=== PATIENT | female | born 1985 | race Caucasian/White ===

== ENCOUNTER 2017-08-02 14:22 | Emergency (ER) | payer SELFPAY ==
[~2017-08-02] VITALS: Ht 165.1 cm; Wt 65.0 kg
[~2017-08-02 14:22] MED LIST: BACT800T5 PO; CEPH-460 PO; HYDR-3533 PO; ZOFR4TAB3 SL
[2017-08-02 14:24] VITALS: BP 115/71; PULSE 70; RESP 20; TEMP 98.4; O2SAT 99
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
[2017-08-02] MEDS ORDERED: CEPH-460 PO (15:25)
[2017-08-02] MEDS ORDERED: BACT800T5 PO (15:25)
== END 2017-08-02 16:23 | disposition home or self-care (01) ==
LOC: EDTENT 14:22
DX: L73.2 Hidradenitis suppurativa (principal); K21.9 Gastro-esophageal reflux disease without esophagitis; Z72.0 Tobacco use
CPT/HCPCS: 10061; 86403; 87070

== ENCOUNTER 2017-09-26 19:08 | Emergency (ER) | payer SELFPAY ==
[~2017-09-26 19:08] MED LIST changes: -HYDR-3533 PO; -ZOFR4TAB3 SL
[2017-09-26 19:11] VITALS: BP 124/87; PULSE 102; RESP 15; TEMP 98.8; O2SAT 100
--- NOTE | 2017-09-26 20:23 | PD ---
HPI Chief Complaint: Skin Problem Time Seen by Provider: 20:12 Travel History International Travel<30 days: No Contact w/Intl Traveler<30days: No Traveled to known affect area: No History of Present Illness HPI Patient comes in complaining of a swollen lump behind her left ear has been there for a while however the past 3 days it has become larger and become painful. Patient describes pain is throbbing like in nature without radiation. Pain is worse with palpation. Patient denies doing anything for this. Denies anything making it better. Patient states that she has similar bumps behind her right ear as well. Denies , IV drug use, or fevers. PFSH Past Medical History AAA: No ADD: No ADHD: No Alzheimer's Disease: No Anemia: No Arthritis: No Atrial Fibrillation: No Autoimmune Disease: No Blood Disorders: No Bipolar Disorder: No Anxiety: No Depression: No Heart Rhythm Problems: No Cancer: No Cardiac Catheterization: No Cardiomyopathy: No Cardiovascular Problems: No Cerebral Palsy: No High Cholesterol: No Chemotherapy: No Chest Pain: Yes Congestive Heart Failure: No Cirrhosis: No COPD: No Cerebrovascular Accident: No Coronary Artery Disease: No Cystic Fibrosis: No Developmental Delay: No Dialysis: No Diminished Hearing: No Diverticulitis: No Deep Vein Thrombosis: No Endocrine: No Fibromyalgia: No Gastrointestinal Disorders: No Genetic Disorder: No GERD: Yes Glaucoma: No Gout: No Genitourinary: No Headaches: No Hepatitis: No Heparin Induced Thrombocytopen: No Hypertension: No Implanted Vascular Access Dvce: No Insomnia: No Kidney Stones: No Musculoskeletal: No Neurologic: No Parkinson's Disease: No Psychiatric: No Reproductive: No Respiratory: No Resp. Syncytial Virus (RSV): No Integumentary: No Migraines: No Myocardial Infarction: No Pancreatitis: No Pneumonia: No Radiation Therapy: No Seizures: No Shingles: No Sickle Cell Disease: No Sleep Apnea: No Thyroid Disease: No Triglycerides - High: No Ulcer: No ?: Not LMP: 09/02/17 : 4 Para: 4 Miscarriage: 1 : 3 Ovarian Cysts: Yes Dilation and Curettage (D&C): Yes Tubal Ligation: No Past Surgical History Abdominal Aneurysm Repair: No Abdominal Surgery: Yes AICD: No Appendectomy: No Arteriovenous Shunt: No Cardiac Surgery: No Section: Yes Cholecystectomy: No Coronary Artery Bypass Graft: No Coronary Stent: No Endocrine Surgery: No Eye Surgery: No Genitourinary Surgery: Yes Gynecologic Surgery: Yes Hysterectomy: No Insulin Pump: No Joint Replacement: No Mastectomy: No Neurologic Surgery: No Oral Surgery: No Pacemaker: No Prostatectomy: No Thoracic Surgery: No Tonsillectomy: No Tympanostomy Tube: No Valve Replacement: No Other Surgery: No Family History Family Hypercholesterolemia: Yes Social History Alcohol Use: Yes Tobacco Use: Yes Substance Use: No Allergies-Medications (Allergen,Severity, Reaction): Coded Allergies: No Known Allergies (Unverified , 08/02/17) Reported Meds & Prescriptions Reported Meds & Active Scripts Active Keflex (Cephalexin) 500 Mg Cap 500 Mg PO Q8H Bactrim DS (Sulfamethoxazole-Trimethoprim) 800-160 Mg Tab 1 Tab PO BID Review of Systems Except as stated in HPI: all other systems reviewed are Neg Physical Exam Narrative GENERAL: Well-developed, well nourished, in no acute distress, and non-ill appearing. SKIN: Focused skin assessment warm and dry. Small infected sebaceous cyst noted left posterior auricle. Patient is similar tiny sebaceous cyst behind the right auricle. There is no drainage, but is tender to palpation. There is no crepitus. HEAD: Atraumatic. Normocephalic. EYES: Pupils equal and round. EOMI. No scleral icterus. No injection or drainage. ENT: No nasal bleeding or discharge. Mucous membranes pink and moist. NECK: Trachea midline. Supple. No nuclear rigidity. RESPIRATORY: No accessory muscle use. No respiratory distress. MUSCULOSKELETAL: No obvious deformities. No clubbing. No cyanosis. No edema. Full range of motion. NEUROLOGICAL: Awake and alert. No obvious cranial nerve deficits. Motor grossly within normal limits. Normal speech. PSYCHIATRIC: Appropriate mood and affect; insight and judgment normal. Data Data Last Documented VS Vital Signs Date Time Temp Pulse Resp B/P (MAP) Pulse Ox O2 Delivery O2 Flow Rate FiO2 09/26/17 20:31 09/26/17 19:11 98.8 102 15 100 Room Air Orders Orders Ed Discharge Order (09/26/17 20:24) MDM Medical Decision Making Medical Screen Exam Complete: Yes Emergency Medical Condition: Yes Differential Diagnosis Abscess, cellulitis, folliculitis, gangrene, sebaceous cyst, infected sebaceous cyst, other Narrative Course Patient in no obvious distress upon re-evaluation. Patient was asked if they wanted to speak to my attending, which the patient did not wish to do at this time. Any questions/concerns in reference to patient diagnosis/condition discussed and clarified prior to patient's discharge. Reinforced sheer importance of close follow up with patient's primary physician or primary care clinic. Instructed patient to return to ED immediately, if symptoms return/ worsen. Patient showed understanding of above instructions. Further instructions and recommendations were detailed in discharge paperwork. Patient ambulated without difficulty out of ED at discharge. Diagnosis Primary Impression: Infected sebaceous cyst Patient Instructions: Cellulitis (ED), Cyst (ED), General Instructions Additional Instructions: Follow-up with your primary care physician, clerical and office support workers, or ENT in 2 days for reevaluation. Return here in 2 days for reevaluation for follow-up outpatient. Take all medication as prescribed. Return to the emergency department if symptoms get worse. Med/Other Pt SpecificInfo: Prescription(s) given Scripts Cephalexin (Keflex) 500 Mg Cap 500 MG PO Q8H for Infection, #30 CAP 0 Refills Prov: Zenobia Tang DO 09/26/17 Sulfamethoxazole-Trimethoprim (Bactrim DS) 800-160 Mg Tab 1 TAB PO BID for Infection, #20 TAB 0 Refills Prov: Zenobia Tang DO 09/26/17 Disposition: 01 DISCHARGE HOME Condition: Stable Fidel Freitas Sep 26, 2017 20:23
[2017-09-26] MEDS ORDERED: BACT800T5 PO (20:24)
[2017-09-26] MEDS ORDERED: CEPH-460 PO (20:24)
== END 2017-09-26 20:39 | disposition home or self-care (01) ==
LOC: NEPK 19:08
DX: L72.3 Sebaceous cyst (principal); L08.9 Local infection of the skin and subcutaneous tissue, unspecified
CPT/HCPCS: 99284